=== PATIENT | female | born 1990 | race Caucasian/White ===

== ENCOUNTER 2018-07-09 17:51 | Emergency (ER) | payer OTHER ==
--- NOTE | 2018-07-09 18:48 | XRAY Report ---
Reason: foot pain Procedure Date: 07/09/2018 Accession Number: [id number] / [id number] Procedure: XR - Foot 3 View RT CPT Code: FULL RESULT: EXAM: RIGHT FOOT RADIOGRAPHY EXAM DATE: 07/09/2018 06:17 PM. CLINICAL HISTORY: Foot pain. COMPARISON: None. TECHNIQUE: 3 views. FINDINGS: Bones: No fracture or focal bony lesion. Joints: No evidence of dislocation. Soft Tissues: No unexpected soft tissue findings. IMPRESSION: No evidence of fracture or dislocation. [facility]
--- NOTE | 2018-07-09 19:28 | ED Physician Documentation ---
PD HPI LOWER EXT INJURY - Stated complaint Stated Complaint: RT FOOT SWELLING - Chief complaint Chief Complaint: Ext Problem - History obtained from History obtained from: Patient - History of Present Illness PD HPI LOW EXT INJURY LOCATION: Right (28-year-old woman with atraumatic right foot pain for the last week. It is just proximal to the first through third toes. There is no specific injury other than she walks a lot at work. Over the last few days, potentially because she is been walking funny radiates up the medial right calf. There is no associated fever, chills, shortness of breath or chest pain. No possibility of .) Review of Systems Constitutional: denies: Fever, Chills Throat: denies: Dental pain / toothache, Sore throat Cardiac: denies: Chest pain / pressure, Palpitations Respiratory: denies: Dyspnea PD PAST MEDICAL HISTORY - Past Medical History Past Medical History: No Cardiovascular: None Respiratory: None Neuro: None Endocrine/Autoimmune: None GI: None PRODUCTION OPERATOR: None : None HEENT: None Psych: None Musculoskeletal: None Derm: None - Past Surgical History Past Surgical History: No - Allergies Allergies/Adverse Reactions: Allergies Allergy/AdvReac Type Severity Reaction Status Date / Time No Known Drug Allergies Allergy Verified 07/09/18 18:00 - Social History Does the pt smoke?: No Smoking Status: Never smoker Does the pt drink ETOH?: No Does the pt have substance abuse?: No - Immunizations Immunizations are current?: Yes - POLST Patient has POLST: No PD ED PE NORMAL - Vitals Vital signs reviewed: Yes - General General: Alert and oriented X 3, No acute distress - Extremities Extremities: Other (Mild tenderness to the distal second and third metatarsals with cool feet but normal pedal pulses. She has mild tenderness of the medial calf on the right.) - Neuro Neuro: Alert and oriented X 3, Normal speech - Psych Psych: Normal mood, Normal affect Results - Vitals Vitals: Vital Signs - 24 hr 07/09/18 17:57 Temperature 36.8 C Heart Rate 90 Respiratory 16 Rate Blood Pressure 145/110 H O2 Saturation 99 Oxygen O2 Source Room air - Labs Labs: Laboratory Tests 07/09/18 07/09/18 07/09/18 19:39 19:39 19:39 WBC 7.9 RBC 4.75 Hgb 14.2 Hct 42.7 MCV 89.8 MCH 30.0 MCHC 33.4 RDW 13.2 Plt Count 285 MPV 8.5 Neut # (Auto) 5.2 Lymph # (Auto) 2.1 Thayer # (Auto) 0.5 Eos # (Auto) 0.1 Baso # (Auto) 0.1 Absolute Nucleated RBC 0.02 Nucleated RBC % 0.2 Sodium 136 Potassium 3.8 Chloride 102 Carbon Dioxide 26 Anion Gap 8.0 BUN 18 Creatinine 0.5 Estimated GFR (MDRD) 148 Glucose 94 Uric Acid 6.1 Calcium 9.4 Total Bilirubin 0.5 AST 21 ALT 32 Alkaline Phosphatase 55 Total Protein 8.3 H Albumin 4.5 Globulin 3.8 Albumin/Globulin Ratio 1.2 Lipase 36 - Rads (name of study) R foot XR Radiology: EMP read contemporaneously (NAD) RLE DVt sono Radiology: Prelim report reviewed (neg) Departure - Departure Disposition: Home, Self Care Clinical Impression: Pain in extremity Qualifiers: Extremity pain location: lower extremity Laterality: right Qualified Code(s): M79.604 - Pain in right leg Condition: Good Record reviewed to determine appropriate education?: Yes Instructions: ED Acute Pain [facility] Comments: As discussed there is no clear reason for the pain, it does not seem like gout and the blood screening test for that was negative. There is no evidence of blood clot and your X-ray was negative for fractures. Try to rest it for a few days and take an anti-inflammatory for the pain. Follow-up with your doctor for new or worsening symptoms. Your blood pressure was elevated today on check into the emergency department. This does not mean that you have hypertension, it is a common phenomenon to come to the emergency department and have elevated blood pressure. I recommend that you see your primary care physician within the week to have it rechecked when you are feeling better.
[2018-07-09 19:47] LABS: BASOPHILS # (AUTO) 0.1 10^3/uL (0.0-0.1); BASOPHILS % (AUTO) 0.8 %; EOSINOPHILS # (AUTO) 0.1 10^3/uL (0.0-0.7); HGB - HEMOGLOBIN 14.2 g/dL (12.0-16.0); LYMPHOCYTES # (AUTO) 2.1 10^3/uL (1.5-3.5); LYMPHOCYTES % (AUTO) 26.2 %; MEAN CORPUSCULAR HGB CONC 33.4 g/dL (32.0-36.0); MEAN CORPUSCULAR VOLUME 89.8 fL (81.0-99.0); MEAN PLATELET VOLUME 8.5 fL (7.9-10.8); MONOCYTES # (AUTO) 0.5 10^3/uL (0.0-1.0); MONOCYTES % (AUTO) 6.7 %; NEUTROPHILS # (AUTO) 5.2 10^3/uL (1.5-6.6); NEUTROPHILS % (AUTO) 65.3 %; PLT - PLATELET COUNT 285 10^3/uL (130-450); RED BLOOD COUNT 4.75 10^6/uL (4.20-5.40); RED CELL DISTRIBUTION WIDTH 13.2 % (12.0-15.0); WHITE BLOOD COUNT 7.9 x10^3/uL (4.8-10.8)
[2018-07-09 19:59] LABS: ALBUMIN 4.5 g/dL (3.2-5.5); ALBUMIN/GLOBULIN RATIO 1.2 (1.0-2.2); BILIRUBIN,TOTAL 0.5 mg/dL (0.2-1.0); CALCIUM 9.4 mg/dL (8.5-10.3); CREATININE 0.5 mg/dL (0.4-1.0); TOTAL PROTEIN 8.3 g/dL (6.7-8.2)
--- NOTE | 2018-07-09 20:56 | Ultrasound Report ---
Reason: leg pain Procedure Date: 07/09/2018 Accession Number: [id number] / [id number] Procedure: US - Duplex Ext Veins Right CPT Code: FULL RESULT: EXAM: RIGHT LOWER EXTREMITY VENOUS ULTRASOUND EXAM DATE: 07/09/2018 07:55 PM. CLINICAL HISTORY: Leg pain. COMPARISON: None. TECHNIQUE: Real-time sonographic vascular imaging was performed by the quality lab technician through the lower extremity utilizing both color-flow and Doppler spectral analysis. Multiple entry level sales representative static images were saved for review. FINDINGS: Common Femoral Vein (CFV): Normal. CFV-GSV Junction: Normal. Profunda Femoral Vein (PFV): Normal. Femoral Vein (FV) Prox: Normal. Femoral Vein (FV) Mid: Normal. Femoral Vein (FV) Dist: Normal. Popliteal Vein: Normal. Posterior Tibial Veins: Normal. Peroneal Veins: Normal. IMPRESSION: No evidence for deep venous thrombosis. [facility]
[2018-07-09 21:00] VITALS: BP 139/96
== END 2018-07-09 21:00 | disposition home or self-care (01) ==
LOC: ED 17:51
DX: M79.604 Pain in right leg (principal)
CPT/HCPCS: 36415; 80053; 83690; 84550; 85025; 99282; 99283